=== PATIENT | female | born 1995 | race Caucasian/White ===

== ENCOUNTER 2019-03-13 09:03 | Emergency (ER) | payer BC ==
[~2019-03-13] VITALS: Ht 165.1 cm; Wt 56.8 kg
[2019-03-13 09:09] VITALS: BP 132/54
[2019-03-13] MEDS ORDERED: ketorolac tromethamine 15mg/ml inj. IM ONE (09:25)
[2019-03-13] MEDS ORDERED: orphenadrine citrate 60mg/2ml inj. IM ONE (09:25)
[2019-03-13] MEDS ORDERED: METH-360 PO (09:30)
[2019-03-13] MEDS ORDERED: MECL12.584 PO (09:53)
== END 2019-03-13 09:58 | disposition home or self-care (01) ==
LOC: ER 09:04
DX: S16.1XXA Strain of muscle, fascia and tendon at neck level, initial encounter (principal); R42 Dizziness and giddiness; Z79.899 Other long term (current) drug therapy; X58.XXXA Exposure to other specified factors, initial encounter; Y93.39 Activity, other involving climbing, rappelling and jumping off; Y92.89 Other specified places as the place of occurrence of the external cause; Y99.8 Other external cause status
CPT/HCPCS: 96372; 99283; J1885; J2360